=== PATIENT | female | born 1970 | race African-American/Black ===

== ENCOUNTER 2019-02-22 18:20 | Emergency (ER) | payer OTHER ==
[~2019-02-22] VITALS: Ht 157.5 cm; Wt 86.2 kg
[2019-02-22 19:32] VITALS: BP 134/95
[2019-02-22] MEDS ORDERED: IBUPROFEN 800800 M1 PO (19:51)
== END 2019-02-22 21:30 | disposition home or self-care (01) ==
LOC: ER 18:20
DX: S16.1XXA Strain of muscle, fascia and tendon at neck level, initial encounter (principal); S70.02XA Contusion of left hip, initial encounter; W01.0XXA Fall on same level from slipping, tripping and stumbling without subsequent striking against object, initial encounter; Y93.89 Activity, other specified; Y92.511 Restaurant or cafe as the place of occurrence of the external cause; Y99.8 Other external cause status